=== PATIENT | male | born 1955 | race Caucasian/White ===

== ENCOUNTER → 2016-11-27 | Outpatient (CLI) | payer BC ==
[~2016-11-27] MED LIST: AMLODIPINE BESYL5 MG PO; ASPIRIN81 M2 PO; BYSTOLIC10 MG PO; CARDIZEM SR PO; CLOPIDOGREL BIS75 MG PO; HYDROCODON-ACE1 EAC9 PO; IMITREX PO; PHENERGAN25 M1 PO; PROTONIX PO; SIMVASTATIN20 MG PO; ZANTAC150 MG
[2016-11-27 16:09] LABS: CREATININE SERUM 0.8 mg/dL (0.6-1.4); GLOM FILT RATE Estimated 97.1 mL/min (>60)
== END | disposition home or self-care (01) ==
LOC: CLAB 15:40
PROVIDERS: Surgery Vascular Surgery
DX: E78.5 Hyperlipidemia, unspecified (principal); I10 Essential (primary) hypertension; I73.9 Peripheral vascular disease, unspecified
CPT/HCPCS: 82565; 84520